=== PATIENT | male | born 1985 | race Two or more races ===

== ENCOUNTER → 2025-05-09 | Emergency (ER) | payer OTHER ==
[~2025-05-09] VITALS: Ht 177.8 cm; Wt 76.2 kg
[~2025-05-09] MED LIST: CEFTRIAXONE SODIUM 1,000 MG VIAL IM ONE; DEXAMETHASONE SODIUM PHOSPHATE 4 MG/ML VIAL IM ONE
== END | disposition left against medical advice (07) ==
LOC: ER 05:59
DX: H66.93 Otitis media, unspecified, bilateral (principal)